=== PATIENT | male | born 1980 | race Caucasian/White ===

== ENCOUNTER 2018-10-06 01:55 | Emergency (ER) | payer OTHER ==
[~2018-10-06] VITALS: Ht 188 cm; Wt 68.0 kg
[~2018-10-06 01:55] MED LIST: CIPROFLOXACIN500 M1 PO; NEURONTIN 300300 M1 PO; PHENERGAN 25 MG25 M1 PO; PHENERGAN25 MG RECTAL; PROTONIX40 M2 PO; TEGRETOL XR200 MG PO; TEGRETOL XR400 MG PO; ZOFRAN 4 MG ORAL4 MG PO
[2018-10-06] MEDS ORDERED: IBUPROFEN 800800 M1 PO (02:14)
[2018-10-06] MEDS ORDERED: BACLOFEN 10MG T10 MG PO (02:14)
[2018-10-06] MEDS ORDERED: IBUPROFEN 800800 MG PO (03:26)
[2018-10-06 03:39] VITALS: BP 138/78
== END 2018-10-06 03:39 ==
LOC: M.ERS 01:55
DX: M79.89 Other specified soft tissue disorders (principal); M54.9 Dorsalgia, unspecified; G89.29 Other chronic pain; W18.30XA Fall on same level, unspecified, initial encounter; Y93.89 Activity, other specified; Y92.89 Other specified places as the place of occurrence of the external cause; Y99.8 Other external cause status